=== PATIENT | male | born 1990 | race African-American/Black ===

== ENCOUNTER 2020-02-21 00:45 | Emergency (ER) | payer MEDICAID, SELFPAY ==
[2020-02-21 00:48] VITALS: BP 126/74; PULSE 74; RESP 16; TEMP 36.7; O2SAT 100; BMI 21.6
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
[2020-02-21] MEDS: 0.9% Normal Saline 1,000 ML 1000 ML IV (01:04)
[2020-02-21] MEDS: Ondansetron 4 MG/2 ML Vial IV (01:04)
[2020-02-21] MEDS: Ketorolac 30 MG/ML Syringe IV (01:05)
[2020-02-21] MEDS: Dicyclomine 20 MG/2 ML Vial IM (01:07)
[2020-02-21 01:21] LABS: Absolute Lymphocyte Count 2.28 X10^3/uL (0.83-4.51); Basophil# 0.03 X10^3/uL; Basophil% 0.4 % (0-1); Eosinophil# 0.04 X10^3/uL; Eosinophils% 0.5 % (0-5); Hematocrit 43.5 % (40-54); Hemoglobin 14.9 g/dL (13.0-16.5); Lymphocyte # 2.28 X10^3/ul (4.0); Mean Corp Hgb Conc 34.3 g/dL (32-36); Mean Corpuscular Hgb 31.6 pg (27.0-32.0); Mean Corpuscular Volume 92.4 fL (80-94); Mean Platelet Vol. 11.7 fl (6.2-12.0); Monocyte% 6.4 % (0-10); NRBC Flagged by Analyzer 0 % (0-5); Neutrophil # 4.97 X10^3/uL (2.7-7.7); Neutrophil % 63.3 % (47-70); Platelet Count 164 K/mm3 (150-450); RBC Distribution Width CV 12.7 % (11.6-14.6); RBC Distribution Width SD 43.8 fl (35.1-43.9); Red Blood Count 4.71 M/mm3 (4.6-6.2); White Blood Count 7.9 K/mm3 (4.4-11.0)
[2020-02-21 01:27] LABS: AST(SGOT) 34 U/L (15-37); Alanine Aminotransfer ALT/SGPT 21 U/L (16-61); Albumin, Serum 4.2 g/dL (3.2-5.0); Alkaline Phosphatase 39 U/L (45-117); Anion Gap 10 (5-15); BUN 13 mg/dL (7-18); BUN/Creat Ratio 11.3 RATIO (10-20); Calcium,Total 9.5 mg/dL (8.5-10.1); Chloride 109 mmol/L (98-107); Creatinine, Serum 1.15 mg/dL (0.70-1.30); EST Glomerular Filtration Rate 80 mL/min (>60); Est Glom Filt Rate - Afr Amer 97 mL/min (>60); Estimated Creatinine Clearance 94.25 ml/min; Globulin 4.1 g/dL (2.2-4.2); Glucose 97 mg/dL (74-106); Lipase 17 U/L (73-393); Potassium 4.4 mmol/L (3.5-5.1); Protein, Total 8.3 g/dL (6.4-8.2); Sodium Level 140 mmol/L (136-145)
[2020-02-21] MEDS: 0.9% Normal Saline 1,000 ML 150 ML IV (01:57)
[2020-02-21 02:39] VITALS: RESP 16
== END 2020-02-21 02:39 | disposition home or self-care (01) ==
PROVIDERS: Emergency Provider Emergency Medicine
DX: R11.10 Vomiting, unspecified (principal); F17.200 Nicotine dependence, unspecified, uncomplicated
CPT/HCPCS: 80053; 80320; 83690; 85025; 96361; 96372; 96374; 96375; 99284; J7030; A4216; G0480; J2405